=== PATIENT | male | born 1975 | race Caucasian/White ===

== ENCOUNTER → 2017-05-03 | Outpatient (CLI) | payer OTHER ==
[~2017-05-03] MED LIST: ALDACTONE25 MG PO; ASPIR 8181 MG PO; ATORVASTATIN CA40 MG PO; CARVEDILOL3.125 MG PO; KEFLEX500 MG PO; LASIX 40 MG TAB40 M2 PO; LASIX 80 MG TAB80 MG PO; LISINOPRIL10 MG PO; LISINOPRIL20 MG PO; METFORMIN HCL500 MG PO; PROTONIX40 M1 PO; REQUIP 0.25 M0.25 MG PO; TOPROL XL100 MG PO
[2017-05-03 14:48] LABS: CALCIUM 8.9 mg/dL (8.5-10.1); CREATININE 1.1 mg/dL (0.6-1.3); POTASSIUM 4.9 mmol/L (3.5-5.1)
== END ==
LOC: M.LAB 14:14
PROVIDERS: Nurse Practitioner
DX: I50.22 Chronic systolic (congestive) heart failure (principal)

== ENCOUNTER → 2017-06-01 | Outpatient (CLI) | payer OTHER ==
[2017-06-01 12:49] LABS: CALCIUM 9.6 mg/dL (8.5-10.1); CREATININE 1.4 mg/dL (0.6-1.3); POTASSIUM 4.1 mmol/L (3.5-5.1)
== END ==
LOC: M.LAB 12:21
PROVIDERS: Internal Medicine Cardiovascular Disease
DX: I50.9 Heart failure, unspecified (principal)

== ENCOUNTER → 2017-09-01 | Outpatient (CLI) | payer OTHER ==
[2017-09-01 14:40] LABS: ALBUMIN 3.8 g/dL (3.4-5.0); CREATININE 1.4 mg/dL (0.6-1.3); MAGNESIUM 1.7 mg/dL (1.8-2.4); POTASSIUM 3.9 mmol/L (3.5-5.1); TOTAL BILIRUBIN 0.4 mg/dL (<0.1-1.0)
== END ==
LOC: M.LAB 14:10
PROVIDERS: Nurse Practitioner
DX: I48.0 Paroxysmal atrial fibrillation (principal)

== ENCOUNTER → 2017-10-20 | Outpatient (CLI) | payer OTHER ==
[2017-10-20 13:03] LABS: CALCIUM 9.5 mg/dL (8.5-10.1); CREATININE 2.3 mg/dL (0.6-1.3); POTASSIUM 3.7 mmol/L (3.5-5.1)
== END ==
LOC: M.LAB 12:41
PROVIDERS: Internal Medicine Cardiovascular Disease
DX: I50.43 Acute on chronic combined systolic (congestive) and diastolic (congestive) heart failure (principal); I48.0 Paroxysmal atrial fibrillation

== ENCOUNTER → 2018-01-18 | Outpatient (CLI) | payer OTHER ==
[2018-01-18 15:17] LABS: CALCIUM 9.3 mg/dL (8.5-10.1); POTASSIUM 3.1 mmol/L (3.5-5.1)
== END ==
LOC: M.LAB 14:54
PROVIDERS: Internal Medicine Cardiovascular Disease
DX: I50.22 Chronic systolic (congestive) heart failure (principal)